=== PATIENT | male | born 1975 | race Caucasian/White ===

== ENCOUNTER 2021-07-15 14:20 | Emergency (ER) | payer SELFPAY ==
--- NOTE | ~2021-07-15 | XR_ITS ---
EXAMINATION: XR lumbar spine 2-3V DATE: 07/15/2021 17:13 INDICATION: Back pain. TECHNIQUE: 3 views of lumbar spine were obtained. COMPARISON: CT abdomen and pelvis 12/09/2016 FINDINGS: There is 3 degrees dextrocurvature of thoracolumbar spine. Vertebral body heights are ciarra l. There is moderately decreased disc height at L5-S1. There is multilevel mild facet joint osteoarth ritis. IMPRESSION: 1. Moderate lower lumbar spondylosis. Reviewed, dictated and finalized at location A.
[2021-07-15 14:38] VITALS: BP 131/75; PULSE 75; RESP 20; TEMP 36.3; O2SAT 100
--- NOTE | 2021-07-15 17:29 | ED.BACK ---
HPI - Back Pain/Injury General Chief Complaint: Back Pain/Injury Stated Complaint: back pain Time Seen by Provider: 07/15/21 16:36 Source: patient and RN notes reviewed Mode of arrival: ambulatory Limitations: no limitations History of Present Illness HPI Narrative: This is a 46 year old healthy male who presents for evaluation of low back pain. He states he was working to change a tire yesterday. He states he was pull a component when he felt a sudden pop in his back. He has been having pain that has worsened . His pain is worse with movement and bending. He has been taking ibuprofen for his pain without relief. He denies pain radiating to his abdomen or legs. He denies leg weakness, numbness tingling or difficulty urinating. Related Data Allergies Allergy/AdvReac Type Severity Reaction Status Date / Time Penicillins Allergy Unknown Hives Verified 07/15/21 16:32 Review of Systems Review of Systems: All systems reviewed & are unremarkable except as noted in HPI and below Constitutional: Constitutional: Denies chills and Denies fatigue Cardiovascular: Cardiovascular: Denies chest pain Respiratory: Respiratory: Denies chest congestion Gastrointestinal: Gastrointestinal: Denies abdominal pain, Denies bloating, Denies constipation and Denies heartburn Genitourinary: Genitourinary: Denies hematuria and Denies oliguria Musculoskeletal: Musculoskeletal: Reports back pain PMFSH Past Medical History Medical History (Updated 07/15/21 @ 17:46 by Mary Mcgrath MD) Patient denies medical problems Surgical History Surgical History (Updated 07/15/21 @ 17:35 by Mary Mcgrtah MD) No pertinent past surgical history Social History Social History (Updated 07/15/21 @ 22:50 by Mary Mcgrath MD) Smoking status: Never smoker Exam Narrative: GENERAL: Well-appearing, well-nourished, and in no acute distress. HEAD: Normocephalic, atraumatic EYES: PERRLA and EOMI, conjunctiva clear without discharge RESPIRATORY: No respiratory distress, Airway patent, Respirations non-labored, Clear to auscultation without rales, rhonchi or wheeze HEART: Regular rate and rhythm. No murmur heard. Normal peripheral pulses. ABDOMEN: Soft, nontender, nondistended, normal active bowel sounds. No masses. No rebound or guarding, No organomegaly. EXTREMITIES: No edema, normal strength with full range of motion. SKIN: Warm, dry, normal color without rash NEURO: Alert and oriented x3. CN 2-12 grossly intact. No focal deficits. PSYCH: Normal mood and affect. Back/Spine/Pelvis: Back: no CVA tenderness Thoracic/Lumbar Spine: thoraco-lumbar ROM normal, paraspinal muscle tenderness, No thoracic spinal tenderness and No lumbar spinal tenderness Course Reevaluation(s) Reevaluation #1: Patient does not have any deficits. This seems to be related to straining. Jaydon mccoy [facility] Date: 07/15/21 Time: 17:44 Vital Signs Vital signs: Vital Signs Temperature 97.3 F L 07/15/21 14:38 Pulse Rate 75 07/15/21 14:38 Respiratory Rate 20 07/15/21 14:38 Blood Pressure 131/75 07/15/21 14:38 Pulse Oximetry 100 07/15/21 14:38 Oxygen Delivery Room Air 07/15/21 14:38 Temperature 97.3 F L 07/15/21 14:38 Pulse Rate 75 07/15/21 14:38 Respiratory Rate 20 07/15/21 14:38 Blood Pressure 131/75 07/15/21 14:38 Pulse Oximetry 100 07/15/21 14:38 Oxygen Delivery Room Air 07/15/21 14:38 MDM - Back Pain/Injury Lab Data Attestation: I reviewed the patient's lab results. Labs: Lab Results 07/15/21 Range/Units 17:14 Urine Color Light yellow (Yellow) Urine Appearance Clear (Clear) Urine pH 6.5 (5.0-9.0) Ur Specific [place] <= 1.005 (1.001-1.035) Urine Protein Negative (Negative) mg/dL Urine Glucose (UA) Negative (Negative) mg/dL Urine Ketones Negative (Negative) mg/dL Ur Blood (Man) 1+ H (Negative) Urine Nitrate Negative (Negative) Urine Bilirubin Negative (Negative)
[2021-07-15 17:33] LABS: Appearance Urine Clear (Clear); Bilirubin Urine Negative (Negative); Blood Urine 1+ (Negative); Glucose Urine UA Negative (Negative); Ketones Urine Negative (Negative); Leukocyte Esterase Ur Negative LEU/UL (Negative); Nitrate Urine Negative (Negative); Protein Urine Negative (Negative); Specific Grav Ur <= 1.005 (1.001-1.035); Urobilinogen Urine 0.2 mg/dL (<2.0); pH Urine 6.5 (5.0-9.0)
[2021-07-15 17:35] LABS: Add Urine Microscopic? YES; Color Urine Light Yellow (Yellow)
[2021-07-15 17:37] LABS: RBC Urine 0-2 /hpf (0-2)
== END 2021-07-15 18:05 | disposition home or self-care (01) ==
PROVIDERS: Emergency Provider General Practice
DX: S39.012A Strain of muscle, fascia and tendon of lower back, initial encounter (principal); M47.816 Spondylosis without myelopathy or radiculopathy, lumbar region; X50.0XXA Overexertion from strenuous movement or load, initial encounter
CPT/HCPCS: 72100; 81001; 99283